=== PATIENT | male | born 1980 | race Caucasian/White ===

== ENCOUNTER 2020-02-17 12:22 | Emergency (ER) | payer BC, SELFPAY ==
--- OUTSIDE RECORDS SUMMARY | 2020-02-17 12:24 | XMS REPORT | Continuity of Care Document ---
:1980 Author Organization [facility] t Address [address] [place] [address] Care Team Providers Name Role Phone Lab, Fam Pob I Attending Clinician Unavailable Doctor Unassigned, Name Attending Clinician Unavailable Problems This patient has no known problems. Allergies, Adverse Reactions, Alerts This patient has no known allergies or adverse reactions. Medications This patient has no known medications. Procedures This patient has no known procedures. Encounters Start End Encounter Admission Attending Care Care Encounter Source Date/Time Date/Time Type Type Clinicians Facility Department ID 2020-01-03 2020-01-03 Laboratory Lab, [facility] [id number] 13:50:55 14:10:55 Only Fam Pob I Health [id number] [place] [id number] Professio [id number] nal [address] 2019-09-25 2019-09-25 Laboratory Lab, [facility] [id number] 16:14:13 16:34:13 Only Fam Pob I Health [id number] [place] [id number] Professio [phone] nal [address] 2019-09-25 2019-09-25 Letter Doctor MCKEON [id number] 00:00:00 00:00:00 (Out) Unassigned, ABEL [id number] [place] [facility] [id number] [id number] Results This patient has no known results.
--- OUTSIDE RECORDS SUMMARY | 2020-02-17 12:24 | XMS REPORT | Summary of Care ---
:1980 Author Organization [facility] Address [address] [place] [id number] Care Team Providers Name Role Phone Pcp, Does Not Have A Primary Care Provider Reason for Visit Reason Comments Cough LAB Chills Exposure Encounter Details Date Type Department Care Team Description 01/03/2020 Laboratory Only [facility] Family Ambrosio aSndhu FNP [address] [place] [address] Exposure to Medicine - [facility], Adc Fam Pob I SARS-associated [address] [facility] coronaviru s ([address] Dx) [place] [address] Allergies Not on Filedocumented as of this encounter (statuses as of 01/03/2020) Medications Not on filedocumented as of this encounter (statuses as of 01/03/2020) Active Problems Not on filedocumented as of this encounter (statuses as of 01/03/2020) Social History Tobacco Use Types Packs/Day Years Used Date Never Assessed Sex Assigned at Date Recorded Not on file COVID-19 Exposure Response Date Recorded In the last month, have you been in contact with Yes 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 documented as of this encounter Last Filed Vital Signs Not on filedocumented in this encounter Nursing Notes Mira Burciaga MA - 01/03/2020 1:40 PM CSTFabrice Tor Murrieta is a 39 year old male here for COVID Screening with a Nasopharyngeal Swab All droplet and contact precautions taken with appropriate PPE worn while interacting with patient. ? Goggles ? N95 Mask ? Gloves ? Gown RR 18 Pulse Ox 97% Patient educated on plan of care for visit, swabbing technique, risks and benefits of test and length of time to receive results. Verbal consent obtained to perform test. CDC Fact Sheet for Patients nCoV Diagnostic Panel dated 05/12/2019 and Factsheet What to Do if Sick with COVID 19 04/22/19 provided. Patient swabbed per appropriate nasopharyngeal technique, and patient tolerated well. Patient was discharged from the testing clinic in stable condition. Mira Burciaga MA 01/03/2020 1:58 PM Bilate nares swabbed during COVID19 nasopharyngeal swab. S SUPERVISOR documented in this encounter Plan of Treatment Name Type Priority Associated Diagnoses Order S chedule COVID-19 (MOLECULAR LAB Routine Exposure to Expected : 01/03/2020, TESTING SARS-associated Expires: 021 NUCLEIC ACID coronavirus AMPLIFICATION) Health Maintenance Due Date Last Done Comments VARICELLA VACCINES (1 of 2 - 07/31/1983 2-dose childhood series) Depression Screening 1994 DTaP,Tdap,and Td Vaccines (1 - 2001 Tdap) INFLUENZA VACCINE (#1) 2019 PNEUMOCOCCAL 0-64 YEARS COMBINED Aged Out No longer eligible based on SERIES patient's age to complete this topic documented as of this encounter Results Not on filedocumented in this encounter Visit Diagnoses Diagnosis Exposure to SARS-associated coronavirus - Primary documented in this encounter Additional Health Concerns Infection Onset Date Last Indicated Resolved Time COVID-19 Rule Out 01/03/2020 01/03/2020 documented as of this encounter
[2020-02-17] MEDS ORDERED: HYDROCODONE/APAP 10/325 TAB ONE (14:40)
[2020-02-17 15:18] LABS: Basophils % 0.9 % (0-1.3); Hematocrit 39.1 % (39.6-49.0); Lymphocytes % 13.1 % (15.3-44.8); MPV 8.2 fL (7.6-11.3); RBC Red Blood Cell Count 5.14 M/uL (4.33-5.43)
[2020-02-17 15:34] LABS: Albumin 3.7 g/dL (3.4-5.0); Bilirubin Total 0.3 mg/dL (0.2-1.0); Potassium 3.8 mmol/L (3.5-5.1)
--- NOTE | 2020-02-17 17:18 | ER ---
Nurse's Notes [facility] Name: Fabrice Murrieta Age: 39 yrs Sex: Male : 1980 Arrival Date: 02/17/2020 Time: 12:24 Bed 13 Private MD: Diagnosis: Cellulitis of left lower limb;Cutaneous abscess of left lower limb Presentation: 02/16 12:52 Chief complaint: Patient states: rash, sores on the R leg. It looks infected tight now. ca1 Denies fever. Coronavirus screen: Client denies travel out of the [place] in the last 14 days. At this time, the client does not indicate any symptoms associated with coronavirus-19. Ebola Screen: Patient negative for fever greater than or equal to 101.5 degrees Fahrenheit, and additional compatible Ebola Virus Disease symptoms Patient denies exposure to infectious person. Patient denies travel to an Ebola-affected area in the 21 days before illness onset. No symptoms or risks identified at this time. Initial Sepsis Screen: Does the patient meet any 2 criteria? No. Patient's initial sepsis screen is negative. Does the patient have a suspected source of infection? No. Patient's initial sepsis screen is negative. Risk Assessment: Do you want to hurt yourself or someone else? Patient reports no desire to harm self or others. Onset of symptoms was February 17, 2020. 12:52 Method Of Arrival: Ambulatory ca1 12:52 Acuity: JEWELL 3 ca1 Historical: - Allergies: 12:56 No Known Allergies; ca1 - Home Meds: 12:56 Cipro Oral [Active]; Flagyl Oral [Active]; ca1 12:57 budesonide 3 mg oral CECX 1 tab three times a day [Active]; ca1 - PMHx: 12:56 Crohn's; ca1 - PSHx: 12:56 None; ca1 - Immunization history:: Adult Immunizations up to date, Flu vaccine is not up to date. - Social history:: Smoking status: Patient denies any tobacco usage or history of. Screenin:00 Abuse screen: Denies threats or abuse. Denies injuries from another. Nutritional zb screening: No deficits noted. Tuberculosis screening: No symptoms or risk factors identified. Fall Risk None identified. Assessment: 13:00 General: Appears in no apparent distress. uncomfortable, Behavior is calm, cooperative, zb appropriate for age. Pain: Complains of pain in lateral aspect of right calf Pain does not radiate. Pain currently is 3 out of 10 on a pain scale. at worst was 10 out of 10 on a pain scale. Quality of pain is described as aching, Is continuous, Aggravated by increased activity, weight bearing. Neuro: Level of Consciousness is awake, alert, obeys commands, Oriented to person, place, time, situation. Cardiovascular: Capillary refill < 3 seconds in bilateral fingers Patient's skin is warm and dry. Respiratory: Airway is patent Respiratory effort is even, unlabored, Respiratory pattern is regular, symmetrical, Breath sounds are clear bilaterally. GI: No signs and/or symptoms were reported involving the gastrointestinal system. : No signs and/or symptoms were reported regarding the genitourinary system. EENT: No signs and/or symptoms were reported regarding the EENT system. Derm: Skin wound Wound noted lateral aspect of right calf Wound is black baseball size wound, black circumference, serosanguinous drainage noted. Musculoskeletal: Circulation, motion, and sensation intact. Capillary refill < 3 seconds, in bilateral fingers. Range of motion: intact in all extremities. 14:00 Reassessment: Patient appears in no apparent distress at this time. Patient and/or zb family updated on plan of care and expected duration. Pain level reassessed. Patient is alert, oriented x 3, equal unlabored respirations, skin warm/dry/pink. wound cultured. 15:00 Reassessment: Patient appears in no apparent distress at this time. Patient and/or zb family updated on plan of care and expected duration. Pain level reassessed. Patient is alert, oriented x 3, equal unlabored respirations, skin warm/dry/pink. pt ambulatory. pt states pain has decreased. 16:00 Reassessment: Patient appears in no apparent distress at this time. Patient and/or zb family updated on plan of care and expected duration. Pain level reassessed. Patient is alert, oriented x 3, equal unlabored respirations, skin warm/dry/pink. pt appears more calm, laughing and joking around. on the phone with family. 17:00 Reassessment: Patient appears in no apparent distress at this time. Patient and/or zb family updated on plan of care and expected duration. Pain level reassessed. Patient is alert, oriented x 3, equal unlabored respirations, skin warm/dry/pink. ECP discussed POC with patient. pt states he is ready to go home, discussed wound care and and maintenance with patient. Vital Signs: 12:52 BP 137 / 98; Pulse 112; Resp 16 S; Temp 97.5(TE); Pulse Ox 99% on R/A; Weight 131.54 kg ca1 (R); Height 6 ft. 4 in. (193.04 cm) (R); Pain 0/10; 14:00 BP 140 / 97; Pulse 104; Resp 18; Pulse Ox 99% on R/A; zb 15:00 BP 128 / 95; Pulse 81; Resp 16; Pulse Ox 98% on R/A; zb 16:00 BP 135 / 93; Pulse 94; Resp 16; Pulse Ox 97% on R/A; zb 17:48 BP 143 / 99; Pulse 98; Resp 16; Pulse Ox 98% on R/A; zb 12:52 Body Mass Index 35.30 (131.54 kg, 193.04 cm) ca1 ED Course: 12:24 Patient arrived in ED. ag5 12:54 Triage completed. ca1 12:56 Arm band placed on right wrist. ca1 14:00 Patient has correct armband on for positive identification. Placed in gown. Bed in low zb position. Call light in reach. Side rails up X 1. Door closed. Noise minimized. 14:06 Sidney Devlin NP is PHCP. pm1 14:07 Raul Rangel MD is Attending Physician. pm1 14:12 Keri Vela, ROGELIO is Primary Nurse. zb 15:16 Wound Culture Sent. dh4 15:16 Blood Culture Adult (2) Sent. dh4 17:53 No provider procedures requiring assistance completed. IV discontinued, intact, zb bleeding controlled, No redness/swelling at site. Pressure dressing applied. Administered Medications: 14:35 Drug: Terl[place] 10 mg-325 mg 1 tabs Route: PO; zb 15:00 Follow up: Response: No adverse reaction; Pain is decreased zb 17:30 Drug: Bactroban Ointment 2 % 1 application Route: Topical; Site: wound; zb 17:30 Drug: Bactrim (160 mg-800 mg (DS) 1 tablet Route: PO; zb 17:46 Follow up: Response: No adverse reaction zb Outcome: 17:17 Discharge ordered by . pm1 17:53 Discharged to home ambulatory. zb 17:53 Condition: stable 17:53 Discharge instructions given to patient, Instructed on discharge instructions, follow up and referral plans. medication usage, Demonstrated understanding of instructions, follow-up care, medications, Prescriptions given X 3. 17:53 Patient left the ED. zb Signatures: Sidney Devlin NP AREA COORDINATOR pm1 Linda Marks RN RN ca1 Calista Garza 5 Neto Min 4 Keri Vela RN RN zb
--- NOTE | 2020-02-17 17:18 | EDPHYS ---
Physician Documentation [facility] Name: Fabrice Murrieta Age: 39 yrs Sex: Male : 1980 Arrival Date: 02/17/2020 Time: 12:24 Bed 13 Private MD: ED Physician Raul Rangel HPI: 02/16 14:23 This 39 yrs old Male presents to ER via Ambulatory with complaints of Skin pm1 Sore(s). 14:23 The patient presents with an abscess of the lateral aspect of right calf. pm1 14:23 Possible cause(s): chron's medication. Associated signs and symptoms: Pertinent pm1 negatives: drainage, fever. Modifying factors: the symptoms are alleviated by nothing, the symptoms are aggravated by nothing. Severity of symptoms: in the emergency department the symptoms are actually worse. The patient has not experienced similar symptoms in the past. The patient has been recently seen by a physician: Dr. Debora HOPE on and placed on Cipro and Flagyl for 14 days. Patient started on immunosuppressant medications for his chron's disease by Dr. Simmons about 3 weeks ago. Patient noticed that he started getting some boils to his lower legs after starting on the medications. Mentioned the boils and the wound to left leg to Dr. Simmons's PA and one of the medications was stopped and he was started on cipro and flagyl. Historical: - Allergies: 12:56 No Known Allergies; ca1 - Home Meds: 12:56 Cipro Oral [Active]; Flagyl Oral [Active]; ca1 12:57 budesonide 3 mg oral CECX 1 tab three times a day [Active]; ca1 - PMHx: 12:56 Crohn's; ca1 - PSHx: 12:56 None; ca1 - Immunization history:: Adult Immunizations up to date, Flu vaccine is not up to date. - Social history:: Smoking status: Patient denies any tobacco usage or history of. ROS: 14:23 Constitutional: Negative for fever, chills, and weight loss, Eyes: Negative for injury, pm1 pain, redness, and discharge, ENT: Negative for injury, pain, and discharge, Neck: Negative for injury, pain, and swelling, Cardiovascular: Negative for chest pain, palpitations, and edema, Respiratory: Negative for shortness of breath, cough, wheezing, and pleuritic chest pain. 14:23 Back: Negative for injury and pain, : Negative for injury, bleeding, discharge, and swelling, MS/Extremity: Negative for injury and deformity. 14:23 Neuro: Negative for headache, weakness, numbness, tingling, and seizure. 14:23 Abdomen/GI: Positive for diarrhea, Negative for abdominal pain, nausea and vomiting. 14:23 Skin: Positive for abscess, of the right ankle and lateral aspect of right calf. Exam: 14:23 Constitutional: This is a well developed, well nourished patient who is awake, alert, pm1 and in no acute distress. Head/Face: Normocephalic, atraumatic. 14:23 Cardiovascular: Exam negative for acute changes, Rate: normal, Rhythm: regular, Pulses: no pulse deficits are appreciated. 14:23 Respiratory: Exam negative for acute changes, respiratory distress, shortness of breath. 14:23 Abdomen/GI: Inspection: abdomen appears normal, Palpation: abdomen is soft and non-tender, in all quadrants. 14:23 Skin: Appearance: normal except for affected area, abscess, that is small, of the right ankle, central opening with drainage present. No surrounding cellulitis. 14:23 Skin: cellulitis, that is moderate, on the lateral aspect of right calf, No abscess pm1 present. Irregular shaped ulceration without any drainage or bleeding central of cellulitis. Vital Signs: 12:52 BP 137 / 98; Pulse 112; Resp 16 S; Temp 97.5(TE); Pulse Ox 99% on R/A; Weight 131.54 kg ca1 (R); Height 6 ft. 4 in. (193.04 cm) (R); Pain 0/10; 14:00 BP 140 / 97; Pulse 104; Resp 18; Pulse Ox 99% on R/A; zb 15:00 BP 128 / 95; Pulse 81; Resp 16; Pulse Ox 98% on R/A; zb 16:00 BP 135 / 93; Pulse 94; Resp 16; Pulse Ox 97% on R/A; zb 17:48 BP 143 / 99; Pulse 98; Resp 16; Pulse Ox 98% on R/A; zb 12:52 Body Mass Index 35.30 (131.54 kg, 193.04 cm) ca1 MDM: 14:07 Patient medically screened. pm1 16:33 Data reviewed: vital signs. Data interpreted: Pulse oximetry: on room air is 99 %. pm1 Interpretation: normal. 16:33 Counseling: I had a detailed discussion with the patient and/or guardian regarding: the pm1 historical points, exam findings, and any diagnostic results supporting the discharge/admit diagnosis, lab results, the need for further work-up and treatment in the hospital, Patient wants to discuss with his prior to being admitted due to lack of insurance. Informed patient that I am treating him as a failed outpatient therapy with immuno-comprised stated which justifies my decision for admission . 16:57 ED course: Patient contacted PA from Dr. Simmons and she wanted him to continue taking pm1 the Cipro and Flagyl since it has helped with his Crohns' by decreasing the number of times of diarrhea to 3 per day. 17:14 Refusal of service: The patient/guardian displays adequate decision making capability pm1 and despite a detailed discussion of alternatives, benefits, risks, and consequences refuses: Admission to the hospital for further work-up and treatment, Patient discussed his decision to stay or leave the hospital with his mother and . He decided to go home for outpatient treatment with additional antibiotics. Patient educated on return precautions. Patient is aware that I would like to admit him instead of him going home. 02/16 14:22 Order name: CBC with Diff pm1 02/16 14:22 Order name: CMP pm1 02/16 14:22 Order name: Blood Culture Adult (2) pm1 02/16 14:22 Order name: Wound Culture pm1 02/16 15:24 Order name: CBC with Automated Diff; Complete Time: 15:38 EDMS 02/16 15:34 Order name: Comprehensive Metabolic Panel; Complete Time: 15:38 EDMS 02/16 14:22 Order name: IV Saline Lock; Complete Time: 14:49 pm1 02/16 17:12 Order name: Wound Culture pm1 Administered Medications: 14:35 Drug: Emm[place] 10 mg-325 mg 1 tabs Route: PO; zb 15:00 Follow up: Response: No adverse reaction; Pain is decreased zb 17:30 Drug: Bactroban Ointment 2 % 1 application Route: Topical; Site: wound; zb 17:30 Drug: Bactrim (160 mg-800 mg (DS) 1 tablet Route: PO; zb 17:46 Follow up: Response: No adverse reaction zb Disposition: 18:06 Co-signature as Attending Physician, Raul Rangel MD. rn Disposition: 02/17/20 17:17 Discharged to Home. Impression: Cellulitis of left lower limb, Cutaneous abscess of left lower limb. - Condition is Stable. - Discharge Instructions: Skin Abscess, Cellulitis, Adult. - Prescriptions for Bactroban 2 % Topical Ointment - Apply to affected area 1 application by TOPICAL route every 12 hours; 30 gram. Bactrim DS 800- 160 mg Oral Tablet - take 1 tablet by ORAL route every 12 hours for 10 days; 20 tablet. Tylenol- Codeine #3 300-30 mg Oral Tablet - take 2 tablets by ORAL route every 6 hours As needed; 20 tablet. - Medication Reconciliation Form, Thank You Letter, Antibiotic Education, Prescription Opioid Use form. - Follow up: Emergency Department; When: As needed; Reason: Worsening of condition. Follow up: Private Physician; When: 2 - 3 days; Reason: Recheck today's complaints, Continuance of care, Re-evaluation by your physician. - Problem is new. - Symptoms have improved. Signatures: Dispatcher [employer] EDMS Raul Rangel MD MD rn Marinas, Patrick, VAN PAPERBOARD BOX MAKER pm1 Linda Marks RN RN ca1 Brown, Zipporah, RN RN jody Corrections: (The following items were deleted from the chart) 17:53 17:17 02/17/2020 17:17 Discharged to Home. Impression: Cellulitis of left lower limb; zb Cutaneous abscess of left lower limb. Condition is Stable. Forms are Medication Reconciliation Form, Thank You Letter, Antibiotic Education, Prescription Opioid Use. Follow up: Emergency Department; When: As needed; Reason: Worsening of condition. Follow up: Private Physician; When: 2 - 3 days; Reason: Recheck today's complaints, Continuance of care, Re-evaluation by your physician. Problem is new. Symptoms have improved. pm1
[2020-02-17] MEDS ORDERED: SMZ./TMP. 800/160 MG TABLET ONE (17:38)
[2020-02-17] MEDS ORDERED: MUPIROCIN 2% OINT 22GM TUBE TOP ONE (17:39)
[2020-02-18 23:52] VITALS: TEMP 97.5
[2020-02-18 23:57] VITALS: BP 143/99; O2SAT 98
== END 2020-02-17 17:53 | disposition home or self-care (01) ==
LOC: ER 12:22
DX: L03.116 Cellulitis of left lower limb (principal); K50.90 Crohn's disease, unspecified, without complications
CPT/HCPCS: 36415; 80053; 85025; 87040; 87070; 87205; 99283